=== PATIENT | female | born 1945 | race Caucasian/White ===

== ENCOUNTER 2017-01-07 07:34 | Emergency (ER) | payer MEDICARE ==
[2017-01-07 07:47] VITALS: O2SAT 100
[2017-01-07] MEDS ORDERED: Sodium Chloride 0.9% 500 ML IV ONE ×2 (08:17→10:08)
--- NOTE | 2017-01-07 08:26 | C.PDOC ---
History Of Present Illness 71 y/o female, no PMHx, presents to ED with c/o right flank pain since yesterday. Patient also reports nausea. Deneis vomiting, urinary changes, hematuria, or other complaints. Time Seen by Provider: 01/07/17 07:50 Chief Complaint (Nursing): Back Pain History Per: Patient History/Exam Limitations: no limitations Onset/Duration Of Symptoms: Days Current Symptoms Are (Timing): Still Present Quality Of Discomfort: "Pain" Previous Symptoms: None Associated Symptoms: Other (nausea) Recent travel outside of the [place]: No Past Medical History Reviewed: Historical Data, Nursing Documentation, Vital Signs Vital Signs: Last Vital Signs Temp 97.6 F 01/07/17 11:04 Pulse 61 01/07/17 11:04 Resp 20 01/07/17 11:04 BP 181/69 H 01/07/17 11:04 Pulse Ox 100 01/07/17 11:04 - Medical History PMH: Hypercholesterolemia Family History: States: Unknown Family Hx - Social History Hx Tobacco Use: No Hx Alcohol Use: No Hx Substance Use: No - Immunization History Hx Tetanus Toxoid Vaccination: No Hx Influenza Vaccination: No Hx Pneumococcal Vaccination: No Review Of Systems Except As Marked, All Systems Reviewed And Found Negative. Constitutional: Negative for: Fever, Chills Cardiovascular: Negative for: Chest Pain Respiratory: Negative for: Cough, Shortness of Breath Gastrointestinal: Positive for: Nausea, Other (Flank Pain, R). Negative for: Vomiting Genitourinary: Negative for: Dysuria, Incontinence, Hematuria Skin: Negative for: Rash Physical Exam - Physical Exam Appears: Non-toxic, No Acute Distress Skin: Warm, Dry Head: Atraumatic, Normacephalic Oral Mucosa: Moist Chest: Symmetrical Cardiovascular: Rhythm Regular Respiratory: Normal Breath Sounds, No Rales, No Rhonchi, No Wheezing Gastrointestinal/Abdominal: Soft, No Tenderness, No Distention, No Guarding, No Rebound Back: CVA Tenderness (right) Extremity: Normal ROM, Capillary Refill (< 2 sec. ) Neurological/Psych: Oriented x3, Normal Speech, Normal Cognition ED Course And Treatment - Laboratory Results Result Diagrams: 01/07/17 09:03 01/07/17 09:03 O2 Sat by Pulse Oximetry: 100 (RA) Pulse Ox Interpretation: Normal - CT Scan/US CT Abdomen/Pelvis Other Rad Studies (CT/US): Read By Radiologist, Radiology Report Reviewed CT/US Interpretation: FINDINGS: There is limited evaluation of the solid organs without the administration of IV contrast. LOWER THORAX: No visible consolidation, pleural effusion, or pneumothorax. Dense coronary and artery calcifications. Small hiatal hernia. LIVER: Unremarkable. GALLBLADDER AND BILE DUCTS: Unremarkable. PANCREAS: Unremarkable. SPLEEN: Unremarkable. ADRENALS: Unremarkable. KIDNEYS AND URETERS: No hydronephrosis or obstructing renal calculus. BLADDER: The urinary bladder appears unremarkable. REPRODUCTIVE: Uterus is present. APPENDIX: The appendix appears within normal limits of caliber. No secondary signs of acute appendicitis. BOWEL: The stomach is nondistended. Lack of oral contrast limits evaluation for bowel pathology. The bowel loops appear within normal limits of caliber without evidence of intestinal obstruction. Moderate constipation. PERITONEUM: No significant free fluid. No definite free air. LYMPH NODES: No bulky lymphadenopathy identified. VASCULATURE: Dense atherosclerotic calcifications of the aorta and branches. No aortic aneurysm. BONES: Osseous demineralization. Mild degenerative changes. OTHER FINDINGS: Fat containing left inguinal hernia. IMPRESSION: Moderate constipation. Medical Decision Making Medical Decision Making: r/o renal stone, pyelo,- labs imaging pending Plan: Toradol, Zofran, IVFs. Labs, CT abdomen/pelvis ordered. Progress:1130: pt reasseseD: taking po in nad. pt states she feels well d/c declines observation in hospital. reports "mild burning with urination". will treat urine. advise strict return precautions outpt fu Disposition - Disposition Referrals: Handy Carter Jr., MD [Staff Provider] - Brian Busby [Staff Provider] - Disposition: HOME/ ROUTINE Disposition Time: 11:25 Condition: STABLE Additional Instructions: please follow up with specialist. return to er with worsening symptoms or concerns. Prescriptions: Cefpodoxime [Vantin] 100 mg PO BID #14 tab Polyethylene Glycol 3350 [Miralax] 17 gm PO DAILY PRN #4 [id number] PRN Reason: Constipation Instructions: Acute Abdominal Pain (ED), Urinary Tract Infection in Women (GEN) , Flank Pain (ED) Forms: [employer] (Samoan) - Clinical Impression Clinical Impression: Low back pain, UTI (urinary tract infection), Flank pain - Scribe Statement The provider has reviewed the documentation as recorded by the Scribe SM All medical record entries made by the Scribe were at my direction and personally dictated by me. I have reviewed the chart and agree that the record accurately reflects my personal performance of the history, physical exam, medical decision making, and the department course for this patient. I have also personally directed, reviewed, and agree with the discharge instructions and disposition.
[2017-01-07] MEDS ORDERED: Sodium Chloride 0.9% 0 ML ONE (08:46)
[2017-01-07 09:17] LABS: BASO % 0.4 % (0.0-2.0); EOS % 0.3 % (0.0-4.0); HEMATOCRIT 40.1 % (34.0-47.0); LYMPH # 0.8 K/uL (1.0-4.3); LYMPH % 14.3 % (20.0-40.0); MEAN CELL VOLUME 93.8 fL (81.0-99.0); MEAN CORPUSCULAR HEMOGLOBIN 31.7 pg (27.0-31.0); MEAN CORPUSCULAR HGB CONC 33.7 g/dL (33.0-37.0); MEAN PLATELET VOLUME 9.2 fL (7.2-11.7); MONO # 0.3 K/uL (0.0-0.8); MONO % 5.2 % (0.0-10.0); RED CELL DISTRIBUTION WIDTH 13.9 % (11.5-14.5); WHITE BLOOD COUNT 5.8 K/uL (4.8-10.8)
[2017-01-07 09:24] LABS: CHLORIDE 103 mmol/L (98-107); POTASSIUM 4.4 mmol/L (3.6-5.2); SODIUM 137 mmol/L (132-148)
[2017-01-07 09:26] LABS: GFR AFRICAN-AMERICAN > 60
[2017-01-07 09:27] LABS: ALB/GLOB RATIO 0.9 (1.0-2.1); ALKALINE PHOSPHATASE 122 U/L (38-126); ALT/SGPT 23 U/L (9-52); AST/SGOT 28 U/L (14-36); BILIRUBIN,TOTAL 0.8 mg/dL (0.2-1.3); BLOOD UREA NITROGEN 13 mg/dL (7-17); CARBON DIOXIDE 24 mmol/L (22-30); GLUCOSE,RANDOM 86 mg/dL (65-105); TOTAL PROTEIN 9.2 g/dL (6.3-8.3)
--- NOTE | 2017-01-07 10:54 | CT ---
PROCEDURE: CT Abdomen and Pelvis without Oral or IV contrast. HISTORY: right flank pain COMPARISON: CT abdomen and pelvis 11/29/12. TECHNIQUE: Contiguous axial images of the abdomen and pelvis. No oral or IV contrast administered. Coronal and Sagittal reformats generated. Radiation dose: Total exam DLP = 476.71 MGy-cm. This CT exam was performed using one or more of the following dose reduction techniques: Automated exposure control, adjustment of the mA and/or kV according to patient size, and/or use of iterative reconstruction technique. FINDINGS: There is limited evaluation of the solid organs without the administration of IV contrast. LOWER THORAX: No visible consolidation, pleural effusion, or pneumothorax. Dense coronary and artery calcifications. Small hiatal hernia. LIVER: Unremarkable. GALLBLADDER AND BILE DUCTS: Unremarkable. PANCREAS: Unremarkable. SPLEEN: Unremarkable. ADRENALS: Unremarkable. KIDNEYS AND URETERS: No hydronephrosis or obstructing renal calculus. BLADDER: The urinary bladder appears unremarkable. REPRODUCTIVE: Uterus is present. APPENDIX: The appendix appears within normal limits of caliber. No secondary signs of acute appendicitis. BOWEL: The stomach is nondistended. Lack of oral contrast limits evaluation for bowel pathology. The bowel loops appear within normal limits of caliber without evidence of intestinal obstruction. Moderate constipation. PERITONEUM: No significant free fluid. No definite free air. LYMPH NODES: No bulky lymphadenopathy identified. VASCULATURE: Dense atherosclerotic calcifications of the aorta and branches. No aortic aneurysm. BONES: Osseous demineralization. Mild degenerative changes. OTHER FINDINGS: Fat containing left inguinal hernia. IMPRESSION: Moderate constipation.
[2017-01-07 11:16] LABS: RBC URINE 3 /hpf (0-3); URINE BILIRUBIN NEGATIVE (NEGATIVE); URINE BLOOD 1+ (NEGATIVE); URINE COLOR Straw (YELLOW); URINE GLUCOSE (UA) NORMAL (Normal); URINE KETONE NEGATIVE (NEGATIVE); URINE LEUKOCYTE ESTERASE 3+ Leu/uL (Negative); URINE PROTEIN NEGATIVE (NEGATIVE); URINE UROBILINOGEN NORMAL mg/dL (0.2-1.0); WBC URINE 16 /hpf (0-5)
[2017-01-07 12:29] VITALS: BP 159/73; PULSE 66; RESP 18; TEMP 97.7
== END 2017-01-07 12:50 | disposition home or self-care (01) ==
LOC: C.ER 07:34
DX: N39.0 Urinary tract infection, site not specified (principal); M54.5 Low back pain; R10.9 Unspecified abdominal pain
CPT/HCPCS: 74176; 80053; 81001; 83690; 85025; 85610; 85730; 87086; 87181; 96365; 96375; 99284; J0696; J1885; J2405; J7040

== ENCOUNTER 2018-01-22 13:46 | Emergency (ER) | payer MEDICARE ==
[2018-01-22 14:04] VITALS: BP 179/71; PULSE 69; RESP 16; TEMP 98.2; O2SAT 98
--- NOTE | 2018-01-22 14:27 | C.PDOC ---
History Of Present Illness 73 y/o female presents to ED complaining of intermittent lower back pain for the past 2 weeks that worsens when bending down. Patient states she had similar symptoms in the past though it self resolved. Notes she bent down to moss picker her dog and it increased the pain. No pain medications were taken. Otherwise she denies SOB, chest pain, abdominal pain, urinary /bowel incontinence, change in sensation, leg swelling, weakness, or numbness. Time Seen by Provider: 01/22/18 14:14 Chief Complaint (Nursing): Back Pain History Per: Patient History/Exam Limitations: no limitations Onset/Duration Of Symptoms: Days Current Symptoms Are (Timing): Still Present Past Medical History Reviewed: Historical Data, Nursing Documentation, Vital Signs Vital Signs: Last Vital Signs Temp 98.2 F 01/22/18 14:02 Pulse 69 01/22/18 14:02 Resp 16 01/22/18 14:02 BP 179/71 H 01/22/18 14:02 Pulse Ox 98 01/22/18 14:02 - Medical History PMH: Hypercholesterolemia Family History: States: No Known Family Hx - Social History Hx Tobacco Use: No Hx Alcohol Use: No Hx Substance Use: No - Immunization History Hx Tetanus Toxoid Vaccination: No Hx Influenza Vaccination: No Hx Pneumococcal Vaccination: No Review Of Systems Except As Marked, All Systems Reviewed And Found Negative. Constitutional: Negative for: Fever, Chills Cardiovascular: Negative for: Chest Pain Respiratory: Negative for: Shortness of Breath Gastrointestinal: Negative for: Abdominal Pain Musculoskeletal: Positive for: Back Pain (lower) Neurological: Negative for: Weakness, Numbness Physical Exam - Physical Exam Appears: Non-toxic, No Acute Distress Skin: Warm, Dry Head: Atraumatic, Normacephalic Eye(s): bilateral: Normal Inspection, EOMI Nose: Normal Oral Mucosa: Moist Neck: Normal ROM, Supple Chest: Symmetrical Cardiovascular: Rhythm Regular Respiratory: Normal Breath Sounds, No Accessory Muscle Use Gastrointestinal/Abdominal: Soft, No Tenderness Back: No CVA Tenderness, No Vertebral Tenderness, Paraspinal Tenderness (paraspinal tenderness) Extremity: Normal ROM Extremity: Bilateral: Atraumatic, Normal Color And Temperature, Normal ROM Neurological/Psych: Oriented x3, Normal Speech, Normal Motor, Normal Sensation Gait: Steady ED Course And Treatment O2 Sat by Pulse Oximetry: 98 (RA) Pulse Ox Interpretation: Normal - Other Rad Lumbar Spine X-Ray X-Ray: Read By Radiologist Interpretation: Findings: Mild anterolisthesis L4 on L5. Moderate loss of height of the inferior endplates of L1 and L4 vertebral bodies. Mild loss of the inferior endplate of the L5 vertebral body. Sclerosis of the bilateral SI joints. Study limited secondary to poor technical quality. Aortic atherosclerotic calcification and plaque noted. Impression: Mild anterolisthesis L4 on L5. Moderate loss of height of the inferior endplates of L1 and L4 vertebral bodies. Mild loss of the inferior endplate of the L5 vertebral body. Sclerosis of the bilateral SI joints. Study limited secondary to poor technical quality. If pain persists, consider correlation with MRI. Progress Note: Previous visits evaluated , last year also for back pain. Urinalysis and Lumbar Spine x-ray ordered. Anaprox administered. On reassessment, patient is resting comfortably, with improvement of back pain. Patient remains afebrile, with no bony tenderness, extremity numbness or weakness, or abdominal pain. Patient is ambulatory in the emergency department with no signs of discomfort. Patient was advised to follow up with physician/clinic in 1-2 days. Disposition - Disposition Disposition: HOME/ ROUTINE Disposition Time: 15:43 Condition: STABLE Additional Instructions: Follow up with ignacio PMD in 1-2 days. Return to ER if symptoms persist or worsen. Prescriptions: Lidocaine 5% [Lidoderm] 1 patch TOP DAILY PRN #5 patch PRN Reason: Pain, Moderate (4-7) Naproxen [Naprosyn] 1 tab PO BID PRN #20 tab PRN Reason: Pain Instructions: Low Back Pain (DC) Forms: [employer] (Spanish) - Clinical Impression Clinical Impression: Low back pain - PA / [employer]CHITECT / Resident Statement MD/DO has reviewed & agrees with the documentation as recorded. - Scribe Statement The provider has reviewed the documentation as recorded by the Scribe Rachel Broderick All medical record entries made by the Ruddyibjose eduardo were at my direction and personally dictated by me. I have reviewed the chart and agree that the record accurately reflects my personal performance of the history, physical exam, medical decision making, and the department course for this patient. I have also personally directed, reviewed, and agree with the discharge instructions and disposition.
[2018-01-22] MEDS ORDERED: Naproxen 550 mg Tab PO STA (14:47)
[2018-01-22] MEDS ORDERED: Naproxen 550 mg Tab PO ONE (14:57)
[2018-01-22 15:28] LABS: SQUAMOUS EPITHIAL < 1 /hpf (0-5); URINE BILIRUBIN NEGATIVE (NEGATIVE); URINE BLOOD 1+ (NEGATIVE); URINE CLARITY Clear (Clear); URINE COLOR Straw (YELLOW); URINE GLUCOSE (UA) NORMAL (Normal); URINE LEUKOCYTE ESTERASE 1+ Leu/uL (Negative); URINE PROTEIN NEGATIVE (NEGATIVE); URINE UROBILINOGEN NORMAL mg/dL (0.2-1.0)
--- NOTE | 2018-01-22 18:54 | RAD ---
Lumbar spine three views History: Pain. COMPARISON: None available. Findings: Mild anterolisthesis L4 on L5. Moderate loss of height of the inferior endplates of L1 and L4 vertebral bodies. Mild loss of the inferior endplate of the L5 vertebral body. Sclerosis of the bilateral SI joints. Study limited secondary to poor technical quality. Aortic atherosclerotic calcification and plaque noted Impression: Mild anterolisthesis L4 on L5. Moderate loss of height of the inferior endplates of L1 and L4 vertebral bodies. Mild loss of the inferior endplate of the L5 vertebral body. Sclerosis of the bilateral SI joints. Study limited secondary to poor technical quality. If pain persists, consider correlation with MRI.
== END 2018-01-22 16:48 | disposition home or self-care (01) ==
LOC: C.ER 13:46
DX: M54.5 Low back pain (principal)